=== PATIENT | female | born 1945 | race Caucasian/White ===

== ENCOUNTER 2024-08-17 05:46 | Emergency (ER) | payer OTHER, MEDICAID ==
[~2024-08-17] VITALS: Ht 162.5 cm; Wt 80.7 kg
[2024-08-17] MEDS ORDERED: DILTIAZEM CD240 MG PO (06:16)
[2024-08-17] MEDS ORDERED: LISINOPRIL5 MG PO (06:16)
[2024-08-17] MEDS ORDERED: XTAMPZA ER9 MG PO (06:17)
[2024-08-17] MEDS ORDERED: ELIQUIS5 M1 PO (06:17)
[2024-08-17] MEDS ORDERED: OXYCODONE HCL10 M1 PO (06:17)
[2024-08-17] MEDS ORDERED: ONDANSETRON HYDR4 MG PO (06:18)
[2024-08-17 07:04] LABS: BASO % 0.8 % (0.0-1.0); EOS # 0.1 10*3/uL (0.0-0.4); EOS % 2.4 % (1.0-4.0); HEMATOCRIT 40.1 % (37.0-47.0); MEAN CELL VOLUME 92.8 fl (81.0-99.0); MEAN CORPUSCULAR HGB 30.1 pg (27.0-31.0); MEAN CORPUSCULAR HGB CONC 32.4 g/dl (33.0-37.0); MEAN PLATELET VOLUME 8.5 fl (9.6-12.3); MONO # 0.4 10*3/uL (0.1-1.0); MONO % 8.3 % (3.0-9.0); NEUT # 3.2 10*3/uL (2.3-7.9); NEUT % 62.6 % (47.0-73.0); PLATELET COUNT AUTOMATED 299 10*3/uL (130-400); RED BLOOD COUNT 4.32 10*6/uL (4.10-5.10); RED CELL DISTRI WIDTH 12.6 % (0-14.5); WHITE BLOOD COUNT 5.1 10*3/uL (4.8-10.8)
[2024-08-17] MEDS ORDERED: OXYCODONE HCL (IR) 10 MG TABLET PO ONE (07:05)
[2024-08-17 07:25] LABS: BUN 15 mg/dl (9-23); CHLORIDE 102 mmol/L (98-107); POTASSIUM 4.8 mmol/L (3.4-5.1)
== END 2024-08-17 08:14 | disposition home or self-care (01) ==
LOC: ED 05:46
PROVIDERS: Emergency Medicine
DX: M25.561 Pain in right knee (principal); R22.41 Localized swelling, mass and lump, right lower limb; I48.91 Unspecified atrial fibrillation; Z88.5 Allergy status to narcotic agent; Z88.8 Allergy status to other drugs, medicaments and biological substances; Z79.899 Other long term (current) drug therapy